=== PATIENT | male | born 1990 | race African-American/Black ===

== ENCOUNTER 2017-03-30 14:01 | Emergency (ER) | payer MEDICAID ==
[~2017-03-30] VITALS: Ht 165.1 cm; Wt 109.0 kg
[2017-03-30 15:30] VITALS: BP 162/95
[2017-03-30] MEDS ORDERED: TETRACAINE 0.5% OPHTH DROPS 4ML LEFTEYE ONE (18:00)
[2017-03-30] MEDS ORDERED: FLUORESCEIN SODIUM 1MG/STRIP LEFTEYE ONE (18:00)
== END 2017-03-30 18:30 | disposition home or self-care (01) ==
LOC: ER 17:46
DX: T15.92XA Foreign body on external eye, part unspecified, left eye, initial encounter (principal); Y93.89 Activity, other specified; Y92.092 Bedroom in other non-institutional residence as the place of occurrence of the external cause; R03.0 Elevated blood-pressure reading, without diagnosis of hypertension
CPT/HCPCS: 99283

== ENCOUNTER 2017-06-30 16:11 | Emergency (ER) | payer SELFPAY ==
[~2017-06-30] VITALS: Ht 165.1 cm; Wt 109.0 kg
[2017-06-30] MEDS ORDERED: MORPHINE SULFATE 4 MG/ML CPJ (NOT FOR IM USE) IV ONE (17:15)
[2017-06-30 17:44] LABS: BASOPHILS % 0.4 % (0.0-2.0); EOSINOPHILS % 1.2 % (0.0-5.0); HEMATOCRIT. 45.5 % (42.0-52.0); HEMOGLOBIN. 15.1 g/dL (14.0-18.0); LYMPHOCYTES % 19.8 % (20.0-50.0); MEAN CORPUSCULAR HEMOGLOBIN 26.1 pg (28.0-32.0); MEAN CORPUSCULAR VOLUME 78.5 fL (80.0-94.0); NEUTROPHILS % 66.6 % (40.0-76.0); PLATELET 235 x1000/uL (130-400); RED BLOOD CELL COUNT 5.79 mill/uL (4.7-6.1); RED CELL DISTRIBUTION WIDTH 15.4 % (11.6-14.6)
[2017-06-30 17:53] LABS: D-DIMER < 0.19 mg/L FEU (<0.50); INR 1.1; PROTHROMBIN TIME 11.1 sec (9.4-11.6)
[2017-06-30 17:54] LABS: CARBON DIOXIDE 30 mEq/L (21-32); CHLORIDE 106 mEq/L (98-107)
[2017-06-30 18:01] LABS: TROPONIN I < 0.02 ng/mL (0.00-0.04)
[2017-06-30 20:29] VITALS: BP 155/89
== END 2017-06-30 20:31 | disposition home or self-care (01) ==
LOC: ER 17:48
DX: R07.81 Pleurodynia (principal); M54.6 Pain in thoracic spine; F12.10 Cannabis abuse, uncomplicated; Z88.0 Allergy status to penicillin
CPT/HCPCS: 36415; 71010; 80053; 83880; 84484; 85025; 85379; 85610; 93005; 96374; 99285; J2270; Z7610

== ENCOUNTER 2018-03-07 12:25 | Emergency (ER) | payer SELFPAY ==
[~2018-03-07] VITALS: Ht 172.7 cm; Wt 109.0 kg
[2018-03-07] MEDS ORDERED: FLUORESCEIN SODIUM 1MG/STRIP RIGHTEYE ONE (13:00)
[2018-03-07] MEDS ORDERED: TETRACAINE 0.5% OPHTH DROPS 4ML RIGHTEYE ONE (16:00)
[2018-03-07 17:22] VITALS: BP 154/98
== END 2018-03-07 17:38 | disposition home or self-care (01) ==
LOC: ER 14:18
DX: S05.01XA Injury of conjunctiva and corneal abrasion without foreign body, right eye, initial encounter (principal); F12.10 Cannabis abuse, uncomplicated; F17.200 Nicotine dependence, unspecified, uncomplicated; Z88.0 Allergy status to penicillin; X58.XXXA Exposure to other specified factors, initial encounter; Y93.89 Activity, other specified; Y92.018 Other place in single-family (private) house as the place of occurrence of the external cause
CPT/HCPCS: 99283

== ENCOUNTER 2021-03-16 20:43 | Emergency (ER) | payer MEDICAID ==
[~2021-03-16] VITALS: Ht 165.1 cm; Wt 86.0 kg
[2021-03-16 21:37] VITALS: BP 164/98
[2021-03-16] MEDS ORDERED: FLUORESCEIN SODIUM 1MG/STRIP BOTHEYE ONE (22:45)
[2021-03-16] MEDS ORDERED: TETRACAINE 0.5% OPHTH DROPS 4ML BOTHEYE ONE (22:45)
[2021-03-16] MEDS ORDERED: NAPHADR EACHEYE (23:57)
== END 2021-03-17 00:24 | disposition home or self-care (01) ==
LOC: ER 20:43
DX: S05.8X2A Other injuries of left eye and orbit, initial encounter (principal); S05.8X1A Other injuries of right eye and orbit, initial encounter; R20.0 Anesthesia of skin; T59.3X3A Toxic effect of lacrimogenic gas, assault, initial encounter; Y93.89 Activity, other specified; Y92.89 Other specified places as the place of occurrence of the external cause
CPT/HCPCS: 99283

== ENCOUNTER 2021-04-11 18:46 | Emergency (ER) | payer MEDICAID ==
[~2021-04-11] VITALS: Ht 165.1 cm; Wt 82.0 kg
[~2021-04-11 18:46] MED LIST: NAPHADR EACHEYE
[2021-04-11] MEDS ORDERED: IBUPROFEN 600MG TABLET PO ONE (20:15)
[2021-04-11 20:47] LABS: BASOPHILS % 0.7 % (0.0-2.0); EOSINOPHILS % 1.2 % (0.0-5.0); HEMATOCRIT. 44.3 % (42.0-52.0); LYMPHOCYTES % 22.3 % (20.0-50.0); MEAN CORPUSCULAR HEMOGLOBIN 27.4 pg (28.0-32.0); MEAN CORPUSCULAR VOLUME 81.1 fL (80.0-94.0); MEAN PLATELET VOLUME 9.3 fl (7.4-10.4); MONOCYTES % 8.3 % (2.0-8.0); NEUTROPHILS % 67.5 % (40.0-76.0); PLATELET 210 x1000/uL (130-400); RED BLOOD CELL COUNT 5.46 mill/uL (4.7-6.1); RED CELL DISTRIBUTION WIDTH 15.6 % (11.6-14.6)
[2021-04-11 20:52] LABS: CHLORIDE 107 mEq/L (98-107)
[2021-04-11 21:48] LABS: *AMPHETAMINES SCREEN URINE NEGATIVE (NEGATIVE); *BARBITURATES SCREEN URINE NEGATIVE (NEGATIVE); *BENZODIAZEPINES SCREEN URINE NEGATIVE (NEGATIVE); *COCAINE SCREEN URINE NEGATIVE (NEGATIVE); METHADONE URINE SCREEN NEGATIVE (NEGATIVE); OPIATES URINE SCREEN NEGATIVE (NEGATIVE)
[2021-04-11 21:50] LABS: CANNABINOID URINE SCREEN PRESUMTIVE POSITIVE (NEGATIVE); PHENCYCLIDINE URINE SCREEN NEGATIVE (NEGATIVE)
[2021-04-11] MEDS ORDERED: IBUP-2029 MT (21:52)
[2021-04-11 22:24] VITALS: BP 121/80
== END 2021-04-11 22:25 | disposition home or self-care (01) ==
LOC: ER 19:17
DX: R07.89 Other chest pain (principal); I10 Essential (primary) hypertension; Z13.9 Encounter for screening, unspecified; Z88.0 Allergy status to penicillin
CPT/HCPCS: 36415; 71045; 80053; 80305; 85025; 85379; 93005; 99285